=== PATIENT | female | born 1955 | race Caucasian/White ===

== ENCOUNTER → 2016-09-29 | Outpatient (CLI) | payer OTHER | LOC: MC.RAD 14:23 | DX: Z12.31 Encounter for screening mammogram for malignant neoplasm of breast (principal) ==

== ENCOUNTER → 2017-10-26 | Outpatient (CLI) | payer BC | LOC: MC.RAD 12:46 | DX: N63.22 Unspecified lump in the left breast, upper inner quadrant (principal) ==

== ENCOUNTER → 2017-11-02 | Outpatient (CLI) | payer BC | LOC: MC.RAD 06:51 | DX: N63.20 Unspecified lump in the left breast, unspecified quadrant (principal) ==

== ENCOUNTER → 2017-11-27 | Outpatient (CLI) | payer BC | LOC: COL.VAS 12:04 | DX: Z01.810 Encounter for preprocedural cardiovascular examination (principal); C50.212 Malignant neoplasm of upper-inner quadrant of left female breast; I34.0 Nonrheumatic mitral (valve) insufficiency ==

== ENCOUNTER 2017-12-05 09:39 | Day surgery (SDC) | payer BC ==
[~2017-12-05] VITALS: Ht 172.7 cm; Wt 78.5 kg
[~2017-12-05 09:39] MED LIST: ACTIFED PO; BROMFED DM COU118 ML PO; IBU600 MG PO; MACROBID 1100 MG/CAP PO
[2017-12-05] MEDS ORDERED: ZITHROMAX Z PA250 MG PO (10:57)
[2017-12-05 11:09] VITALS: BP 133/73; PULSE 86; TEMP 98.1
[2017-12-05 13:10] VITALS: BP 123/70; PULSE 89
[2017-12-05 13:25] VITALS: BP 119/66; PULSE 84
[2017-12-05 13:40] VITALS: BP 127/72; PULSE 85
[2017-12-05 13:55] VITALS: BP 134/66; PULSE 87
== END 2017-12-05 14:50 | disposition home or self-care (01) ==
LOC: SDCO 09:39 → COL.RAD 12:15 → SDCO 12:15 → EDSTATUS 12:15 → SDCO 14:50
DX: C50.212 Malignant neoplasm of upper-inner quadrant of left female breast (principal); Z88.5 Allergy status to narcotic agent; Z88.2 Allergy status to sulfonamides
CPT/HCPCS: C1788; J0690; J1644; J2704; J3010; J7120

== ENCOUNTER 2017-12-12 08:39 | Outpatient (CLI) | payer BC ==
[2017-12-12] VITALS (20 sets, daily range): BP systolic 110–153; BP diastolic 63–88; PULSE 72–87
[~2017-12-12] VITALS: Ht 172.7 cm; Wt 78.9 kg
[~2017-12-12 08:39] MED LIST changes: +MUCINEX FAST-M1 EA10 PO; +NORCO 325 MG-51 TAB PO; +ZITHROMAX Z PA250 MG PO
[2017-12-13] MEDS ORDERED: TYLENOL 500MG500 MG PO (07:46)
== END 2017-12-12 13:34 | disposition home or self-care (01) ==
LOC: COL.RAD 08:39
DX: C50.212 Malignant neoplasm of upper-inner quadrant of left female breast (principal); J98.4 Other disorders of lung; J18.1 Lobar pneumonia, unspecified organism; Z95.828 Presence of other vascular implants and grafts
CPT/HCPCS: 27584

== ENCOUNTER 2017-12-13 07:05 | Observation (INO) | payer BC ==
[~2017-12-13] VITALS: Ht 172.7 cm; Wt 79.2 kg
[2017-12-13 07:40] LABS: BASO # 0.1 (0.0-0.2); BASO % 0.7 % (0.0-2.0); EOS # 0.3 (0.0-0.7); EOS % 2.6 % (0-4.0); GRAN # 7.6 (1.4-6.5); GRAN % 65.3 % (42.2-75.2); HEMATOCRIT 42.1 % (37.0-47.0); LYMPH # 2.5 (1.2-3.4); LYMPH % 21.2 % (20.0-51.0); MEAN CELL VOLUME 90 fl (80.0-100.0); MEAN CORPUSCULAR HEMOGLOBIN 30 pg (27.0-31.0); MEAN CORPUSCULAR HGB CONC 33 g/dl (33.0-37.0); MEAN PLATELET VOLUME 9.1 fl (7.4-10.4); MONO # 1.2 (0.1-0.6); MONO % 9.9 % (1.7-9.3); PLATELET COUNT 195 K/mm3 (130-400); RED BLOOD COUNT 4.67 M/mm3 (4.10-5.30); REDCELL DISTRIBUTION WIDTH-CV 12.8 % (11.5-14.5)
[2017-12-13 07:44] LABS: INR 0.9 (0.8-3.0); PROTHROMBIN TIME 10.7 SECONDS (9.7-12.8)
[2017-12-13] MEDS ORDERED: TYLENOL 500MG500 MG PO (07:46)
[2017-12-13 07:47] LABS: PARTIAL THROMBOPLASTIN TIME 33.6 SECONDS (26.0-37.0)
[2017-12-13 07:49] LABS: ALANINE AMINOTRANSFERASE 37 U/L (9-52); ALKALINE PHOSPHATASE 73 U/L (50-136); ANION GAP 12 mmol/L (7-16); AST,SGOT 33 U/L (15-37); BILIRUBIN,TOTAL 0.7 mg/dL (0.0-1.0); BLOOD UREA NITROGEN 12 mg/dL (7-17); CALCIUM 9.4 mg/dL (8.4-10.2); CARBON DIOXIDE 27 mmol/L (22-30); CHLORIDE 105 mmol/L (98-107); GLUCOSE 103 mg/dL (74-106); POTASSIUM 3.8 mmol/L (3.4-5.0); SODIUM 144 mmol/L (137-145); TOTAL PROTEIN 8.3 gm/dL (6.4-8.2)
[2017-12-13 08:03] LABS: TROPONIN-I < 0.012 ng/mL (0.000-0.034)
[2017-12-13 14:10] VITALS: BP 130/65; PULSE 83; TEMP 98.3
[2017-12-13 15:06] VITALS: BP 149/67; PULSE 86; TEMP 98.6
[2017-12-13 20:21] VITALS: BP 125/66; PULSE 73; TEMP 98.4
[2017-12-14 00:15] VITALS: BP 121/60; PULSE 72; TEMP 98.5
[2017-12-14 04:01] VITALS: BP 116/56; PULSE 66; TEMP 98
[2017-12-14 07:37] VITALS: BP 127/62; PULSE 70; TEMP 97.9
== END 2017-12-14 08:25 | disposition home or self-care (01) ==
LOC: COL.ER 07:05 → MEDICAL 07:37
PROVIDERS: Emergency Medicine
DX: J93.9 Pneumothorax, unspecified (principal); C50.912 Malignant neoplasm of unspecified site of left female breast; Z90.710 Acquired absence of both cervix and uterus; Z88.2 Allergy status to sulfonamides; Z88.5 Allergy status to narcotic agent
CPT/HCPCS: G0378; J1170; J2405; J7030

== ENCOUNTER → 2018-01-25 | Outpatient (CLI) | payer BC ==
[~2018-01-25] MED LIST changes: +TYLENOL 500MG500 MG PO
== END ==
LOC: MC.RAD 09:51
DX: Z08 Encounter for follow-up examination after completed treatment for malignant neoplasm (principal); N63.20 Unspecified lump in the left breast, unspecified quadrant; Z85.3 Personal history of malignant neoplasm of breast

== ENCOUNTER 2018-02-12 09:32 | Day surgery (SDC) | payer BC ==
[~2018-02-12] VITALS: Ht 172.7 cm; Wt 80.1 kg
[2018-02-12] VITALS (10 sets, daily range): BP systolic 104–137; BP diastolic 61–77; PULSE 49–89; TEMP 97.1–97.8
[2018-02-12] MEDS ORDERED: VITAMIN C500 MG PO (10:17)
[2018-02-12] MEDS ORDERED: FLAGYL500 MG PO (10:17)
[2018-02-12] MEDS ORDERED: ESTRACE0.1 MG/GM VG (10:48)
== END 2018-02-12 22:30 | disposition home or self-care (01) ==
LOC: SDCO 09:32
DX: C50.212 Malignant neoplasm of upper-inner quadrant of left female breast (principal)
CPT/HCPCS: A9541; J0690; J1100; J2370; J2405; J2704; J2710; J3010; J7120

== ENCOUNTER → 2018-10-14 | Outpatient (CLI) | payer BC ==
[~2018-10-14] MED LIST changes: +ESTRACE0.1 MG/GM VG; +FLAGYL500 MG PO; +VITAMIN C500 MG PO
== END ==
LOC: COL.RAD 08:48
DX: C50.212 Malignant neoplasm of upper-inner quadrant of left female breast (principal); M89.8X5 Other specified disorders of bone, thigh; M25.511 Pain in right shoulder; M79.605 Pain in left leg
CPT/HCPCS: A9503

== ENCOUNTER → 2018-12-09 | Outpatient (CLI) | payer BC | LOC: MC.RAD 06:52 | DX: Z12.31 Encounter for screening mammogram for malignant neoplasm of breast (principal) ==

== ENCOUNTER → 2019-12-19 | Outpatient (CLI) | payer BC | LOC: MC.RAD 14:37 | DX: Z12.31 Encounter for screening mammogram for malignant neoplasm of breast (principal); Z98.890 Other specified postprocedural states; Z92.3 Personal history of irradiation ==

== ENCOUNTER → 2020-12-21 | Outpatient (CLI) | payer BC | LOC: MC.RAD 09:17 | DX: Z12.31 Encounter for screening mammogram for malignant neoplasm of breast (principal); Z85.3 Personal history of malignant neoplasm of breast; Z98.890 Other specified postprocedural states; Z92.3 Personal history of irradiation ==

== ENCOUNTER → 2021-12-22 | Outpatient (CLI) | payer BC | LOC: MC.RAD 09:42 | DX: Z12.31 Encounter for screening mammogram for malignant neoplasm of breast (principal); Z85.3 Personal history of malignant neoplasm of breast ==

== ENCOUNTER → 2023-01-05 | Outpatient (CLI) | payer BC | LOC: MC.RAD 12-25 09:15 | DX: Z12.31 Encounter for screening mammogram for malignant neoplasm of breast (principal); Z85.3 Personal history of malignant neoplasm of breast ==

== ENCOUNTER → 2024-01-07 | Outpatient (CLI) | payer BC | LOC: COL.RAD 08:30 → MC.RAD 09:00 | DX: Z12.31 Encounter for screening mammogram for malignant neoplasm of breast (principal) ==